=== PATIENT | female | born 1990 | race Caucasian/White ===

== ENCOUNTER 2016-10-31 15:36 | Emergency (ER) ==
[2016-10-31 15:54] VITALS: BP 128/97; TEMP 98.8; BMI 36.8
[2016-10-31] MEDS ORDERED: MORPHINE 4 MG/ML SYRINGE IM STA (16:00)
[2016-10-31] MEDS ORDERED: ZOFRAN 4 MG/2 ML IM STA (16:00)
[2016-10-31 16:10] LABS: BASOPHILS % (AUTO) 0.3 % (0.0-3.0); EOSINOPHILS # (AUTO) 0.3 K/ul (0.0-0.7); EOSINOPHILS % (AUTO) 2.7 % (0.0-7.0); HEMATOCRIT 39.8 % (37.0-47.0); HEMOGLOBIN 13.6 g/dl (12.0-16.0); IMMATURE GRANULOCYTE % (AUTO) 0.4 % (0.0-5.0); LYMPHOCYTES # (AUTO) 3.8 K/uL (0.60-3.4); LYMPHOCYTES % (AUTO) 33.4 (10.0-50.0); MEAN CORPUSCULAR HEMOGLOBIN 29.4 pg (27.0-31.0); MEAN CORPUSCULAR HGB CONC 34.2 (31.8-35.4); MEAN CORPUSCULAR VOLUME 86.1 fl (81.0-99.0); MONOCYTES # (AUTO) 0.9 K/uL (0.4-2.0); MONOCYTES % (AUTO) 7.6 (0-10); NEUTROPHILS # (AUTO) 6.3 K/ul (2.0-6.9); NEUTROPHILS % (AUTO) 55.6; PLATELET COUNT 395 10^3/uL (140-440); RED BLOOD COUNT 4.62 10^6/ul (4.20-5.40); WHITE BLOOD COUNT 11.28 K/ul (4.6-10.2)
[2016-10-31 16:28] LABS: ALBUMIN 4.6 g/dL (3.4-5.0); ALBUMIN/GLOBULIN RATIO 1.24; ANION GAP 19.6; BILIRUBIN,TOTAL 0.74 mg/dL (0.00-1.20); BUN/CREATININE RATIO 13.58; CREATININE 0.81 mg/dL (0.60-1.30); POTASSIUM 3.6 mmol/L (3.5-5.10); TOTAL PROTEIN 8.3 g/dL (6.4-8.2)
--- NOTE | 2016-10-31 16:42 | ED.PDOC ---
General ED Provider: Dr. ANALIA KEATING Chief Complaint: Abdominal Pain Stated Complaint: abdominal pain Time Seen by Physician: 15:38 (seen with staff) Mode of Arrival: Wheelchair Information Source: Patient Exam Limitations: No limitations Nursing and Triage Documentation Reviewed and Agree: Yes GI Complaint Exam - Abdominal Pain Complaint/Exam Onset: Gradual Duration: 1 day Symptoms Are: Still present Timing: Intermittent Initial Severity: Moderate Current Severity: Moderate Location of Pain: Diffuse Character: Reports: Dull Aggravating: Reports: None Alleviating: Reports: None Associated Signs and Symptoms: Denies: Diaphoresis, Fever, Cough, Chest pain, Dizziness, Back pain, Constipation, Blood in stool, Dysuria, Urinary frequency, Decreased urine output, Decreased appetite, Vaginal bleeding, Vaginal discharge , Nausea, Vomiting, Diarrhea, Sore throat, Decreased activity Related History: Reports: Similar episode AAA Risk Factors: Reports: None Cardiac Risk Factors: Reports: None Ectopic Risk Factors: Reports: None Ovarian Torsion Risk Factors: Reports: None Surgical Obstruction Risk Factors: Reports: None Related Surgical History: Reports: None Patient Rh Status: Unknown Abdominal Findings: Present: None Differential Diagnoses: Appendicitis, Bowel Obstruction, Constipation, Diverticulitis, Gastroenteritis, Pancreatitis, UTI, Ovarian Cyst Review of Systems - Review Of Systems Constitutional: Reports: No symptoms Eyes: Reports: No symptoms Ears, Nose, Mouth, Throat: Reports: No symptoms Respiratory: Reports: No symptoms Cardiac: Reports: No symptoms GI: Reports: Abdominal pain : Reports: No symptoms Musculoskeletal: Reports: No symptoms Skin: Reports: No symptoms Neurological: Reports: No symptoms Endocrine: Reports: No symptoms Hematologic/Lymphatic: Reports: No symptoms All Other Systems: Reviewed and Negative Past Medical History - Past Medical History Previously Healthy: Yes Endocrine: Reports: None Cardiovascular: Reports: None Respiratory: Reports: None Hematological: Reports: None Gastrointestinal: Reports: None Genitourinary: Reports: None Neuro/Psych: Reports: None Musculoskeletal: Reports: None Cancer: Reports: None Last Menstrual Period: now - Surgical History General Surgical History: Reports: None - Family History Family History: Reports: Unknown - Social History Smoking Status: Current every day smoker, Light tobacco smoker Hx Substance Use: No Alcohol Screening: Occasionally Physical Exam - Physical Exam Appearance: Well-appearing, No pain distress, Well-nourished Eyes: SAM, EOMI, Conjunctiva clear ENT: Ears normal, Nose normal, Oropharynx normal Respiratory: Airway patent, Breath sounds clear, Breath sounds equal, Respirations nonlabored Cardiovascular: RRR, Pulses normal, No rub, No murmur GI/: Soft, Nontender, No masses, Bowel sounds normal, No Organomegaly Musculoskeletal: Normal strength, ROM intact, No edema, No calf tenderness Skin: Warm, Dry, Normal color Neurological: Sensation intact, Motor intact, Reflexes intact, Cranial nerves intact, Alert, Oriented Psychiatric: Affect appropriate, Mood appropriate Interpretation - Radiology Interpretation Radiology Interpretation By: Radiologist Critical Care Note - Critical Care Note Total Time (mins): 0 Course - Course Hematology/Chemistry: 10/31/16 16:05 10/31/16 16:05 Orders, Labs, Meds: Lab Review 10/31/16 10/31/16 16:05 16:55 WBC 11.28 H RBC 4.62 Hgb 13.6 Hct 39.8 MCV 86.1 MCH 29.4 MCHC 34.2 RDW Coeff of Myrna 14.4 Plt Count 395 Immature Gran % (Auto) 0.4 Neut % (Auto) 55.6 Lymph % (Auto) 33.4 [place] % (Auto) 7.6 Eos % (Auto) 2.7 Baso % (Auto) 0.3 Immature Gran # (Auto) 0.0 Neut # 6.3 Lymph # 3.8 H [place] # 0.9 Eos # 0.3 Baso # 0.0 Sodium 140 Potassium 3.6 Chloride 103 Carbon Dioxide 21 Anion Gap 19.6 BUN 11 Creatinine 0.81 Estimated GFR (MDRD) 86.00 BUN/Creatinine Ratio 13.58 Glucose 90 Calcium 10.0 Total Bilirubin 0.74 AST 28 ALT 46 Alkaline Phosphatase 82 Total Protein 8.3 H Albumin 4.6 Globulin 3.7 Albumin/Globulin Ratio 1.24 Amylase 27 Lipase 9 Urine Test Negative Orders Category Date Time Status EKG-(ED ONLY) Stat CARDIO 10/31/16 16:54 Completed AMYLASE Stat LAB 10/31/16 16:05 Completed CBC W/ AUTO DIFF Stat LAB 10/31/16 16:05 Completed COMPREHENSIVE METABOLIC PANEL Stat LAB 10/31/16 16:05 Completed LIPASE Stat LAB 10/31/16 16:05 Completed URINE Stat LAB 10/31/16 16:55 Completed Morphine Sulfate [Morphine 4 mg/ml Syringe] MEDS 10/31/16 16:00 Discontinued 4 mg IM ONCE STA Ondansetron HCl/Pf [Zofran 4 mg/2 ml] MEDS 10/31/16 16:00 Discontinued 4 mg IM ONCE STA CT ABDOMEN/PELVIS WO CONTRAST Stat RADS 10/31/16 15:59 Completed ULTRASOUND PELVIS BEAUCHAMP VAGINAL/NONOB [U/S PELVIS BEAUCHAMP RADS 10/31/16 15:55 Completed VAGINAL/NON OB] Stat Medications Discontinued Medications Generic Name Dose Route Start Last Admin Trade Name Freq PRN Reason Stop Dose Admin Morphine Sulfate 4 mg 10/31/16 16:00 10/31/16 17:00 Morphine 4 Mg/Ml Syringe IM 10/31/16 16:01 4 mg ONCE STA Administration Ondansetron HCl 4 mg 10/31/16 16:00 10/31/16 17:00 Zofran 4 Mg/2 Ml IM 10/31/16 16:01 4 mg ONCE STA Administration Vital Signs: Temp Pulse Resp BP Pulse Ox 10/31/16 15:36 98.8 F 133 H 20 128/97 H 100 Departure - Departure Time of Disposition: 17:40 (discharge inst given with neighborhood worker at bedside all reports given to the pt) Disposition: HOME SELF-CARE Discharge Problem: Abdominal pain Instructions: Abdominal Pain (ED) Condition: Good Pt referred to PMD for follow-up: No Additional Instructions: Please call your Family Physician as soon as possible to schedule a follow-up appointment. Allergies/Adverse Reactions: Allergies No Known Allergies Allergy (Unverified 10/31/16 15:46) Home Medications: Ambulatory Orders 1 [No Reported Medications] 10/31/16 Disposition Discussed With: Patient
--- NOTE | 2016-10-31 16:51 | US ---
EXAM: Transvaginal pelvic ultrasound HISTORY: Pelvic pain with history of and tubal ligation COMPARISON: CT abdomen pelvis 05/15/2014 TECHNIQUE: Transvaginal pelvic ultrasound was performed to better evaluate the structures. Limited Doppler was provided. FINDINGS: The uterus measures 8.3 x 3.2 x 4.3 cm. The endometrium measures 0.9 cm in thickness. Ce rvix is normal in appearance. The right ovary measures 3.4 x 2.5 x 2.1 cm. There is normal color Doppler flow. There is an anecho ic cyst measuring 2.3 x 2.6 x 2.1 cm. The left ovary is not seen. IMPRESSION: 1. Anechoic cyst in the right adnexa most consistent with ovarian cyst. There is no evidence of to rsion. 2. No additional abnormality is identified.
[2016-10-31 17:05] LABS: URINE PREGNANCY INTERNAL QC INTERNAL QC VALID
--- NOTE | 2016-10-31 17:30 | CT ---
EXAM: CT of the abdomen pelvis without contrast History: Abdominal pain. Comparison: CT abdomen pelvis 05/15/2014, pelvic ultrasound 10/31/2016 Technique: Multiplanar CT images through the abdomen pelvis were obtained without the administratio n of IV contrast Findings: Lung bases are free of consolidation. No acute osseous abnormalities. Moderate degenerat jeannette disc disease at L5-S1 No discrete gallstones identified by CT. No focal liver or splenic lesions. No peripancreatic infl ammation. Adrenal glands are unremarkable. No renal stones and no hydronephrosis. No bowel obstru ction. The appendix is normal. No free air. No ascites. No bladder wall thickening. 2.2 cm righ t adnexal cyst. No perirectal inflammation. Impression: A small right adnexal cyst. Moderate degenerative disc disease at L5-S1. Examination is otherwise unremarkable.
== END 2016-10-31 18:07 | disposition home or self-care (01) ==
LOC: ED 15:36
DX: R10.84 Generalized abdominal pain (principal); F17.210 Nicotine dependence, cigarettes, uncomplicated
CPT/HCPCS: 36415; 80053; 81025; 82150; 83690; 85025; 93005; 93010; 96372; 99283

== ENCOUNTER 2016-12-08 00:28 | Emergency (ER) ==
[2016-12-08 00:29] VITALS: BMI 36.8
[2016-12-08 00:41] VITALS: BP 112/74; TEMP 97.6
[2016-12-08] MEDS ORDERED: SODIUM CHLORIDE 1,000 ML IV STA (01:01)
[2016-12-08 01:14] LABS: BASOPHILS # (AUTO) 0.1 K/uL (0-0.2); BASOPHILS % (AUTO) 0.5 % (0.0-3.0); EOSINOPHILS # (AUTO) 0.6 K/ul (0.0-0.7); HEMATOCRIT 39.9 % (37.0-47.0); HEMOGLOBIN 13.4 g/dl (12.0-16.0); IMMATURE GRANULOCYTE % (AUTO) 0.3 % (0.0-5.0); LYMPHOCYTES # (AUTO) 4.1 K/uL (0.60-3.4); LYMPHOCYTES % (AUTO) 39.7 (10.0-50.0); MEAN CORPUSCULAR HEMOGLOBIN 29.4 pg (27.0-31.0); MEAN CORPUSCULAR HGB CONC 33.6 (31.8-35.4); MEAN CORPUSCULAR VOLUME 87.5 fl (81.0-99.0); MONOCYTES # (AUTO) 0.8 K/uL (0.4-2.0); MONOCYTES % (AUTO) 8.1 (0-10); NEUTROPHILS # (AUTO) 4.6 K/ul (2.0-6.9); NEUTROPHILS % (AUTO) 45.4; PLATELET COUNT 346 10^3/uL (140-440); RED BLOOD COUNT 4.56 10^6/ul (4.20-5.40); WHITE BLOOD COUNT 10.21 K/ul (4.6-10.2)
[2016-12-08 01:32] LABS: SERUM PREGNANCY INTERNAL QC INTERNAL QC VALID
[2016-12-08 01:33] LABS: ALBUMIN 3.8 g/dL (3.4-5.0); ALBUMIN/GLOBULIN RATIO 1.12; ANION GAP 16.9; BILIRUBIN,TOTAL 0.18 mg/dL (0.00-1.20); BUN/CREATININE RATIO 25.97; CALCIUM 9.6 mg/dL (8.2-10.2); CREATININE 0.77 mg/dL (0.60-1.30); POTASSIUM 3.9 mmol/L (3.5-5.10); TOTAL PROTEIN 7.2 g/dL (6.4-8.2)
[2016-12-08 01:42] LABS: BILIRUBIN,URINE Negative (NEGATIVE); KETONES,URINE Negative (NEGATIVE); LEUKOCYTE ESTERASE ,URINE Negative (NEGATIVE); NITRITE,URINE Negative (NEGATIVE); PH,URINE 5.5 (5-9); PROTEIN,URINE Negative (NEGATIVE); URINE, BLOOD Trace-intact (NEGATIVE)
[2016-12-08 01:45] LABS: ADD URINE MICROSCOPIC YES
[2016-12-08 02:04] LABS: CREATINE KINASE 115 U/L
[2016-12-08 02:11] LABS: CREATINE KINASE MB 1.5 ng/ml (0.0-3.6)
[2016-12-08 02:17] LABS: COCAIN SCREEN,URINE NEGATIVE (NEGATIVE)
--- NOTE | 2016-12-08 02:42 | CT ---
EXAM: CT angiogram of the chest with intravenous contrast 12/08/2016. Sagittal and coronal reforma tted images obtained HISTORY: Chest pain COMPARISON: 07/05/2015 FINDINGS: The heart size appears within normal limits. No pericardial effusion. There are no pulmonary arterial filling defects to suggest pulmonary embolus. Bilateral bronchial wa ll thickening which may relate to bronchitis/bronchiolitis. Bilateral ground-glass density most pro minent in a perihilar distribution. This may relate to areas of pneumonitis. There is no pulmonary consolidation, effusion or pneumothorax. IMPRESSION: 1. No pulmonary embolus. 2. Bilateral bronchial wall thickening which may relate to bronchitis/bronchiolitis 3. Ground-glass density within both lungs. This is most prominent in a perihilar distribution coul d relate to areas of pneumonitis.
--- NOTE | 2016-12-08 03:16 | ED.PDOC ---
General ED Provider: Dr. TATIANA IBRAHIM-ER Chief Complaint: Chest Pain Stated Complaint: my heart started beating fast and then it hurt Time Seen by Physician: 00:45 Mode of Arrival: Walk-In Information Source: Patient, Family Exam Limitations: No limitations Nursing and Triage Documentation Reviewed and Agree: Yes Cardiovascular Complaint Exam - Palpitations Complaint/Exam Onset/Duration: 2hrs Symptoms Are: Still present Timing: Constant Initial Severity: Mild Current Severity: Mild Character: Reports: Fast, Pounding Aggravating: Reports: None Alleviating: Reports: None Associated Signs and Symptoms: Reports: Chest pain, Shortness of breath. Denies : Lightheadedness, Dizziness, Syncope, Diaphoresis, Nausea, Vomiting Related Surgical History: Reports: None Cardiac Risk Factors: Reports: None Thyroid Exam: Normal Differential Diagnoses: Mitral Valve Prolapse Quality Indicator For Non-Traumatic Chest Pain/Syncope: EKG Performed Review of Systems - Review Of Systems Constitutional: Reports: No symptoms Eyes: Reports: No symptoms Ears, Nose, Mouth, Throat: Reports: No symptoms Respiratory: Reports: Short of air Cardiac: Reports: Chest pain, Palpitations GI: Reports: No symptoms : Reports: No symptoms Musculoskeletal: Reports: No symptoms Skin: Reports: No symptoms Neurological: Reports: No symptoms Endocrine: Reports: No symptoms Hematologic/Lymphatic: Reports: No symptoms All Other Systems: Reviewed and Negative Past Medical History - Past Medical History Previously Healthy: Yes Endocrine: Reports: None Cardiovascular: Reports: None Respiratory: Reports: None Hematological: Reports: None Gastrointestinal: Reports: None Genitourinary: Reports: None Neuro/Psych: Reports: None Musculoskeletal: Reports: None Cancer: Reports: None Last Menstrual Period: 3 DAYS AGO - Surgical History General Surgical History: Reports: None - Family History Family History: Reports: Unknown - Social History Smoking Status: Current every day smoker, Light tobacco smoker Hx Substance Use: Yes (ALCOHOL/METH) Alcohol Screening: Occasionally Lives: With family - Immunizations Tetanus Shot up to Date: Yes Physical Exam - Physical Exam Appearance: Well-appearing, No pain distress, Well-nourished Eyes: SAM, EOMI, Conjunctiva clear ENT: Ears normal, Nose normal, Oropharynx normal Neck: Supple Respiratory: Airway patent, Breath sounds clear, Breath sounds equal, Respirations nonlabored Cardiovascular: RRR, Pulses normal, No rub, No murmur GI/: Soft, Nontender, No masses, Bowel sounds normal, No Organomegaly Musculoskeletal: Normal strength, ROM intact, No edema, No calf tenderness Skin: Warm, Dry, Normal color Neurological: Sensation intact, Motor intact, Reflexes intact, Cranial nerves intact, Alert, Oriented Psychiatric: Affect appropriate, Mood appropriate, Anxious Interpretation - Radiology Interpretation Radiology Interpretation By: Radiologist ("ground glass density both lungs") Radiology Results: Positive Exam Interpreted: CT Scan - EKG Interpretation Time of EKG #1: 01:00 Rate: Normal Rhythm: Sinus Ectopy: None Sullivan: NL ST Segment: Normal Interpretation: nsr Re-Evaluation - Re-Evaluation Time of Re-Evaluation: 03:16 Status: Improved (sleeping--no cp or palpitations) Vital Signs Stable: Yes Pain Level: 0 Appearance: NAD Lungs: Clear Skin: Warm and Dry Neuro: Alert and Oriented X3 CV: RRR Critical Care Note - Critical Care Note Total Time (mins): 0 Course - Course Hematology/Chemistry: 12/08/16 01:10 12/08/16 01:10 Orders, Labs, Meds: Lab Review 12/08/16 12/08/16 12/08/16 01:10 01:25 01:58 WBC 10.21 H RBC 4.56 Hgb 13.4 Hct 39.9 MCV 87.5 MCH 29.4 MCHC 33.6 RDW Coeff of Myrna 13.6 Plt Count 346 Immature Gran % (Auto) 0.3 Neut % (Auto) 45.4 Lymph % (Auto) 39.7 [place] % (Auto) 8.1 Eos % (Auto) 6.0 Baso % (Auto) 0.5 Immature Gran # (Auto) 0.0 Neut # 4.6 Lymph # 4.1 H [place] # 0.8 Eos # 0.6 Baso # 0.1 Sodium 141 Potassium 3.9 Chloride 104 Carbon Dioxide 24 Anion Gap 16.9 BUN 20 H Creatinine 0.77 Estimated GFR (MDRD) 91.00 BUN/Creatinine Ratio 25.97 Glucose 93 Calcium 9.6 Total Bilirubin 0.18 AST 34 ALT 50 Alkaline Phosphatase 86 Total Creatine Kinase 115 CK-MB (CK-2) 1.5 CK-MB (CK-2) % 1.75932 Troponin I < 0.0100 Total Protein 7.2 Albumin 3.8 Globulin 3.4 Albumin/Globulin Ratio 1.12 Amylase 24 L Lipase 12 TSH 2.513 Free T4 1.01 Serum , Qual Negative Urine Color Yellow Urine Clarity Clear Urine pH 5.5 Ur Specific [place] >=1.030 Urine Protein Negative Urine Glucose (UA) Negative Urine Ketones Negative Urine Blood Trace-intact Urine Nitrite Negative Urine Bilirubin Negative Urine Urobilinogen 0.2 Ur Leukocyte Esterase Negative Urine Microscopic RBC 2-5 Ur Squamous Epith Cells Not present Urine Opiates Screen Negative Ur Oxycodone Screen Negative Urine Methadone Screen Negative Ur Propoxyphene Screen Negative Ur Barbiturates Screen Negative U Tricyclic Antidepress Negative Ur Phencyclidine Scrn Negative Ur Amphetamine Screen Negative U Methamphetamines Scrn Negative U Benzodiazepines Scrn Positive Urine Cocaine Screen Negative U Cannabinoids Screen Negative Orders Category Date Time Status EKG-(ED ONLY) Stat CARDIO 12/08/16 01:01 Completed HOLTER MONITOR-(ED ONLY) Stat CARDIO 12/08/16 03:13 Ordered NPO REMINDER: IMAGING ONCE CARE 12/08/16 01:02 Completed Food Safety Field Specialist [ED COC[employer] BE[employer] ROASTER HELPER APPLIED] .ONCE EMERGENCY 12/08/16 01:01 Active ED IV/MEDIPORT/POWERPORT .ONCE EMERGENCY 12/08/16 01:01 Active AMYLASE Stat LAB 12/08/16 01:10 Completed CBC W/ AUTO DIFF Stat LAB 12/08/16 01:10 Completed COMPREHENSIVE METABOLIC PANEL Stat LAB 12/08/16 01:10 Completed CREATINE KINASE Stat LAB 12/08/16 01:10 Completed FREE T4 (FREE THYROXINE) Stat LAB 12/08/16 01:10 Completed LIPASE Stat LAB 12/08/16 01:10 Completed SERUM Stat LAB 12/08/16 01:10 Completed THYROID STIMULATING HORMONE Stat LAB 12/08/16 01:10 Completed TROPONIN I Stat LAB 12/08/16 01:10 Completed URINALYSIS C & S IF INDICATED Stat LAB 12/08/16 01:25 Completed URINE DRUG SCREEN (RAPID FOR ED) [DRUG SCREEN, URINE, LAB 12/08/16 01:58 Completed RAPID] Stat 0.9 % Sodium Chloride [Saline Flush] MEDS 12/08/16 01:01 Ordered 1 syr IVF PRN PRN Sodium Chloride 0.9% [Sodium Chloride] 1,000 ml MEDS 12/08/16 01:01 Active IV 100 mls/hr CT CHEST PE PROTOCOL Stat RADS 12/08/16 01:02 Completed Medications Generic Name Dose Route Start Last Admin Trade Name Freq PRN Reason Stop Dose Admin Sodium Chloride 1,000 mls @ 100 mls/hr 12/08/16 01:01 12/08/16 01:32 Sodium Chloride IV 12/08/16 11:00 100 mls/hr .Q10H STA Administration Sodium Chloride 1 syr 12/08/16 01:01 12/08/16 01:34 Saline Flush IVF 1 syr PRN PRN Administration To flush IV we note the ground glass denisty both lungs ?significance---denies any cough or hemoptysis or fever--advised the patient to follow up with her pcp Vital Signs: Temp Pulse Resp BP Pulse Ox 12/08/16 00:29 97.6 F 91 H 18 112/74 100 RADHA Risk Score RADHA Risk Score: Risk Score Odds of by 30D 0 0.1 (0.1-0.2) 1 0.3 (0.2-0.3) 2 0.4 (0.3-0.5) 3 0.7 (0.6-0.9) 4 1.2 (1.0-1.5) 5 2.2 (1.9-2.6) 6 3.0 (2.5-3.6) 7 4.8 (3.8-6.1) Departure - Departure Time of Disposition: 03:17 Disposition: HOME SELF-CARE Discharge Problem: Chest pain, Palpitations Instructions: Palpitations (ED) Condition: Good Pt referred to PMD for follow-up: Yes Additional Instructions: continue holter monitor---f/u with pcp regarding abnormal findings on ct scan Allergies/Adverse Reactions: Allergies No Known Allergies Allergy (Verified 12/08/16 00:41) Home Medications: Ambulatory Orders Alprazolam [Xanax] 0.5 mg PO BID PRN 12/08/16 Bupropion HCl [Wellbutrin] 75 mg PO DAILY 12/08/16 Disposition Discussed With: Patient, Family
--- NOTE | 2016-12-11 10:23 | HOLTER ---
PATIENT INFORMATION AND COMMENTS Indications: CHEST PAIN, BACK PAIN, SOB __ Patient Medications: XANAX, WELLBUTRIN __ Pre-procedure Summary: Protocol: Standard Heart Rate Started: 12/08/16344 Minimum: 59 BPM Weight: 235 LBS Ended: 12/09/16 034 Maximum: 174 BPM Height: 67" Duration: 24 HOURS Average: 91 BPM _ INTERPRETATIONS/OBSERVATIONS: 1. BASIC RHYTHM: SINUS, RATE 60/BPM TO 110/BPM, AVERAGE 90/BPM 2. INFREQUENT PVC'S AND RARE PAC'S 3. NO ST-T WAVE CHANGES FROM BASELINE 4. NO CORRELATION WITH ACTIVITY LOG MTDD
== END 2016-12-08 03:53 | disposition home or self-care (01) ==
LOC: ED 00:28
DX: R07.9 Chest pain, unspecified (principal); R00.2 Palpitations; R06.02 Shortness of breath; R91.8 Other nonspecific abnormal finding of lung field; F17.210 Nicotine dependence, cigarettes, uncomplicated
CPT/HCPCS: 36415; 80053; 80306; 81001; 82150; 82550; 82553; 83690; 84439; 84443; 84484; 84703; 85025; 93005; 93010; 96360; 96361; 99283

== ENCOUNTER 2017-02-21 11:45 | Outpatient (CLI) ==
--- NOTE | 2017-02-21 12:15 | US ---
EXAM: Ultrasound abdomen limited. HISTORY: Right upper quadrant pain. COMPARISON: CT 10/31/2016. TECHNIQUE: Abdominal, real time with image documentation: limited (eg, single organ, quadrant, foll ow-up) FINDINGS: Image quality is degraded by patients body habitus. The liver demonstrates increased pare nchymal echogenicity without intrahepatic biliary dilatation. Portal venous flow is normal in direct ion. The gallbladder is without shadowing stones, wall thickening or pericholecystic fluid. Common duct measures approximately 0.3 cm. Visualized portions of the pancreas are unremarkable. IMPRESSION: 1. Fatty infiltration of the liver. 2. Technically limited study due to patient's body habitus. Consider follow-up CT if symptoms persi st.
[2017-02-21 12:19] LABS: BILIRUBIN,URINE Negative (NEGATIVE); KETONES,URINE Negative (NEGATIVE); LEUKOCYTE ESTERASE ,URINE Negative (NEGATIVE); NITRITE,URINE Negative (NEGATIVE); PH,URINE 6.5 (5-9); PROTEIN,URINE Negative (NEGATIVE); URINE PREGNANCY INTERNAL QC INTERNAL QC VALID; URINE, BLOOD Trace-intact (NEGATIVE)
[2017-02-21 12:29] LABS: BASOPHILS # (AUTO) 0.1 K/uL (0-0.2); BASOPHILS % (AUTO) 0.6 % (0.0-3.0); EOSINOPHILS # (AUTO) 0.4 K/ul (0.0-0.7); EOSINOPHILS % (AUTO) 4.5 % (0.0-7.0); HEMOGLOBIN 13.7 g/dl (12.0-16.0); IMMATURE GRANULOCYTE % (AUTO) 0.3 % (0.0-5.0); LYMPHOCYTES # (AUTO) 2.6 K/uL (0.60-3.4); LYMPHOCYTES % (AUTO) 26.6 (10.0-50.0); MEAN CORPUSCULAR HEMOGLOBIN 29.3 pg (27.0-31.0); MEAN CORPUSCULAR HGB CONC 34.3 (31.8-35.4); MEAN CORPUSCULAR VOLUME 85.5 fl (81.0-99.0); MONOCYTES # (AUTO) 0.4 K/uL (0.4-2.0); MONOCYTES % (AUTO) 4.3 (0-10); NEUTROPHILS # (AUTO) 6.2 K/ul (2.0-6.9); NEUTROPHILS % (AUTO) 63.7; PLATELET COUNT 334 10^3/uL (140-440); RED BLOOD COUNT 4.68 10^6/ul (4.20-5.40); WHITE BLOOD COUNT 9.73 K/ul (4.6-10.2)
[2017-02-21 12:30] LABS: ADD URINE MICROSCOPIC YES
[2017-02-21 12:32] LABS: COCAIN SCREEN,URINE NEGATIVE (NEGATIVE)
[2017-02-21 12:40] LABS: ALBUMIN 3.5 g/dL (3.4-5.0); ALBUMIN/GLOBULIN RATIO 0.92; BILIRUBIN,TOTAL 0.31 mg/dL (0.00-1.20); BUN/CREATININE RATIO 12.85; CALCIUM 9.4 mg/dL (8.2-10.2); CHOL/HDL RATIO 4.2 (4.5-5.5); CREATININE 0.7 mg/dL (0.60-1.30); TOTAL PROTEIN 7.3 g/dL (6.4-8.2)
== END 2017-02-21 11:46 | disposition home or self-care (01) ==
LOC: RAD 11:45
PROVIDERS: ATTEND Nurse Practitioner Family
DX: F41.1 Generalized anxiety disorder (principal); R10.11 Right upper quadrant pain; R11.2 Nausea with vomiting, unspecified; Y63.3 Inadvertent exposure of patient to radiation during medical care
CPT/HCPCS: 36415; 80053; 80061; 80306; 81001; 81025; 82150; 83690; 85025

== ENCOUNTER 2017-04-22 09:44 | Outpatient (CLI) ==
[2017-04-22 10:44] LABS: ALBUMIN 3.7 g/dL (3.4-5.0); ALBUMIN/GLOBULIN RATIO 0.97; ANION GAP 13.8; BILIRUBIN,TOTAL 0.26 mg/dL (0.00-1.20); BUN/CREATININE RATIO 16.21; CALCIUM 9.5 mg/dL (8.2-10.2); CREATININE 0.74 mg/dL (0.60-1.30); POTASSIUM 3.8 mmol/L (3.5-5.10); TOTAL PROTEIN 7.5 g/dL (6.4-8.2)
== END 2017-04-22 09:45 | disposition home or self-care (01) ==
LOC: CAR 09:44
PROVIDERS: ATTEND Nurse Practitioner Family
DX: E66.3 Overweight (principal)
CPT/HCPCS: 36415; 80053; 84443; 93005; 93010

== ENCOUNTER 2017-05-21 16:15 | Outpatient (CLI) | END 2017-05-21 16:16 | disposition home or self-care (01) | LOC: LAB 16:15 | PROVIDERS: ATTEND Emergency Medicine | DX: R68.89 Other general symptoms and signs (principal) | CPT/HCPCS: 87804 ==

== ENCOUNTER 2017-07-15 16:43 | Outpatient (CLI) | END 2017-07-15 16:44 | disposition home or self-care (01) | LOC: FCC-LAB 16:43 | PROVIDERS: ATTEND Nurse Practitioner Family | DX: F41.8 Other specified anxiety disorders (principal); E66.9 Obesity, unspecified; R53.83 Other fatigue | CPT/HCPCS: 36415; 80053; 82306; 84439; 84443; 85025 ==

== ENCOUNTER 2017-10-14 09:51 | Emergency (ER) ==
[2017-10-14 10:06] VITALS: BP 116/82; TEMP 98.9; BMI 35.4
--- NOTE | 2017-10-14 10:15 | ED.PDOC ---
General ED Provider: Dr. ANALIA KEATING Chief Complaint: Eye Problem Stated Complaint: pink eye Time Seen by Physician: 10:00 Mode of Arrival: Walk-In Information Source: Patient Exam Limitations: No limitations Nursing and Triage Documentation Reviewed and Agree: Yes Reviewed sepsis parameters & appropriate labs ordered?: Yes System Inflammatory Response Syndrome: Not Applicable Sepsis Protocol: For patient's 13 years and over: Temp is 96.8 and below OR 101 and greater Pulse >90 BPM Resp >20/minute Acutely Altered Mental Status Are patient's symptoms suggestive of a new infection, such as: -Pneumonia -Skin, Soft Tissue -Endocarditis -UTI -Bone, Joint Infection -Implantable Device -Acute Abdominal Infection -Wound Infection -Meningitis -Blood Stream Catheter Infection -Unknown EENT Complaint Exam - Eye Complaint/Exam Onset/Duration: 2 days Symptoms Are: Still present (2 days) Timing: Constant Initial Severity: Mild Current Severity: Mild Location: Right, Left Character: Reports: Dull Aggravating: Reports: Light Alleviating: Reports: Darkness Associated Signs and Symptoms: Reports: Photophobia, Clear drainage. Denies: Purulent drainage, Vision impairment, Fever, Swelling Eye Surgical History: Reports: None Penetrating Injury Risk Factors: None Globe Rupture Risk Factors: None Acute Glaucoma Risk Factors: None Optic Artery Occlusion Risk Factors: None Visual Field: Normal Extraocular Movement: Normal Orbit Findings: Normal Globe Findings: Intact Lid Findings: Normal Conjunctival Findings: Red Corneal Findings: Clear Differential Diagnoses: Conjunctivitis Review of Systems - Review Of Systems Constitutional: Reports: No symptoms Eyes: Reports: Inflammation (r, l eyes ) Ears, Nose, Mouth, Throat: Reports: No symptoms Respiratory: Reports: No symptoms Cardiac: Reports: No symptoms GI: Reports: No symptoms : Reports: No symptoms Musculoskeletal: Reports: No symptoms Skin: Reports: No symptoms Neurological: Reports: No symptoms Endocrine: Reports: No symptoms Hematologic/Lymphatic: Reports: No symptoms All Other Systems: Reviewed and Negative Past Medical History - Past Medical History Previously Healthy: Yes Endocrine: Reports: None Cardiovascular: Reports: None Respiratory: Reports: None Hematological: Reports: None Gastrointestinal: Reports: None Genitourinary: Reports: None Neuro/Psych: Reports: None Musculoskeletal: Reports: None Cancer: Reports: None Last Menstrual Period: one week ago - Surgical History General Surgical History: Reports: None - Family History Family History: Reports: Unknown - Social History Smoking Status: Current some day smoker Hx Substance Use: No Alcohol Screening: Occasionally - Immunizations Tetanus Shot up to Date: Yes Physical Exam - Physical Exam Appearance: Well-appearing, No pain distress, Well-nourished Eyes: Conjunctiva inflammed (right, left) ENT: Ears normal, Nose normal, Oropharynx normal Respiratory: Airway patent, Breath sounds clear, Breath sounds equal, Respirations nonlabored Cardiovascular: RRR, Pulses normal, No rub, No murmur GI/: Soft, Nontender, No masses, Bowel sounds normal, No Organomegaly Musculoskeletal: Normal strength, ROM intact, No edema, No calf tenderness Skin: Warm, Dry, Normal color Neurological: Sensation intact, Motor intact, Reflexes intact, Cranial nerves intact, Alert, Oriented Psychiatric: Affect appropriate, Mood appropriate Critical Care Note - Critical Care Note Total Time (mins): 0 Course - Course Vital Signs: Temp Pulse Resp BP Pulse Ox 10/14/17 09:53 98.9 F 92 H 16 116/82 95 Departure - Departure Time of Disposition: 10:15 Disposition: HOME SELF-CARE Discharge Problem: Conjunctivitis Qualifiers: Conjunctivitis type: acute Acute conjunctivitis type: unspecified Laterality: bilateral Qualified Code(s): H10.33 - Unspecified acute conjunctivitis, bilateral Instructions: Conjunctivitis (ED) Condition: Good Pt referred to PMD for follow-up: Yes IPMP verified?: No Additional Instructions: Please call your Family Physician as soon as possible to schedule a follow-up appointment.see doctor brush in next 2 days Allergies/Adverse Reactions: Allergies No Known Allergies Allergy (Unverified 01/27/17 16:06) Home Medications: Ambulatory Orders Alprazolam [Xanax] 0.5 mg PO BID PRN 12/08/16 Bupropion HCl [Wellbutrin] 75 mg PO DAILY 12/08/16
== END 2017-10-14 10:29 | disposition home or self-care (01) ==
LOC: ED 09:51
DX: H10.33 Unspecified acute conjunctivitis, bilateral (principal); F17.210 Nicotine dependence, cigarettes, uncomplicated
CPT/HCPCS: 99282

== ENCOUNTER 2018-05-18 18:58 | Emergency (ER) | payer OTHER ==
[2018-05-18 19:04] VITALS: TEMP 99.3; BMI 32.1
[2018-05-18 20:39] VITALS: BP 110/79
--- NOTE | 2018-05-18 20:42 | ED.PDOC ---
General ED Provider: Dr. TATIANA ANN MD Chief Complaint: Palpitations Stated Complaint: increased heart rate Time Seen by Physician: 20:40 Mode of Arrival: Walk-In Information Source: Patient Exam Limitations: No limitations Nursing and Triage Documentation Reviewed and Agree: Yes Does patient meet sepsis criteria?: No If yes, has appropriate treatment been initiated?: Yes System Inflammatory Response Syndrome: Not Applicable Sepsis Protocol: For patient's 13 years and over: Temp is 96.8 and below OR 101 and greater Pulse >90 BPM Resp >20/minute Acutely Altered Mental Status Are patient's symptoms suggestive of a new infection, such as: -Pneumonia -Skin, Soft Tissue -Endocarditis -UTI -Bone, Joint Infection -Implantable Device -Acute Abdominal Infection -Wound Infection -Meningitis -Blood Stream Catheter Infection -Unknown Cardiovascular Complaint Exam - Palpitations Complaint/Exam Symptoms Are: Resolved Timing: Intermittent Initial Severity: Mild Current Severity: None Character: Reports: Fast Aggravating: Reports: Caffeine, Medications Alleviating: Reports: Rest Related Surgical History: Reports: None Cardiac Risk Factors: Reports: None Pulmonary Embolism Risk Factors: Reports: None Atrial Fibrillation Risk Factors: Reports: None Thyroid Exam: Normal Differential Diagnoses: Other (phentermine) Quality Indicator For Non-Traumatic Chest Pain/Syncope: EKG Performed Review of Systems - Review Of Systems Constitutional: Reports: No symptoms Eyes: Reports: No symptoms Ears, Nose, Mouth, Throat: Reports: No symptoms Respiratory: Reports: No symptoms Cardiac: Reports: No symptoms GI: Reports: No symptoms : Reports: No symptoms Musculoskeletal: Reports: No symptoms Skin: Reports: No symptoms Neurological: Reports: No symptoms Endocrine: Reports: No symptoms Hematologic/Lymphatic: Reports: No symptoms All Other Systems: Reviewed and Negative Past Medical History - Past Medical History Previously Healthy: Yes Endocrine: Reports: None Cardiovascular: Reports: None Respiratory: Reports: None Hematological: Reports: None Gastrointestinal: Reports: None Genitourinary: Reports: None Neuro/Psych: Reports: None Musculoskeletal: Reports: None Cancer: Reports: None Last Menstrual Period: COUPLE WEEKS AGO - Surgical History General Surgical History: Reports: None - Family History Family History: Reports: Unknown - Social History Smoking Status: Former smoker Hx Substance Use: No (CLEAN FOR DRUGS IN LONG TIME) Alcohol Screening: Occasionally - Immunizations Tetanus Shot up to Date: Yes Physical Exam - Physical Exam Appearance: Well-appearing, No pain distress, Well-nourished Ill-appearing: None Pain Distress: None Eyes: SAM, EOMI, Conjunctiva clear ENT: Ears normal Neck: Supple Respiratory: Airway patent Cardiovascular: RRR, Pulses normal, No rub, No murmur GI/: Soft Musculoskeletal: Normal strength Skin: Warm, Dry, Normal color Neurological: Sensation intact, Motor intact, Reflexes intact, Cranial nerves intact, Alert, Oriented Psychiatric: Affect appropriate, Mood appropriate Critical Care Note - Critical Care Note Total Time (mins): 0 Course - Course Vital Signs: Temp Pulse Resp BP Pulse Ox 05/18/18 20:39 87 110/79 96 05/18/18 20:18 96 H 115/75 98 05/18/18 18:58 99.3 F 99 H 16 127/89 97 RADHA Risk Score RADHA Risk Score: Risk Score Odds of by 30D 0 0.1 (0.1-0.2) 1 0.3 (0.2-0.3) 2 0.4 (0.3-0.5) 3 0.7 (0.6-0.9) 4 1.2 (1.0-1.5) 5 2.2 (1.9-2.6) 6 3.0 (2.5-3.6) 7 4.8 (3.8-6.1) Departure - Departure Time of Disposition: 21:05 Disposition: HOME SELF-CARE Discharge Problem: Heart palpitations Instructions: Heart Palpitations (DC) Condition: Good Pt referred to PMD for follow-up: Yes IPMP verified?: No Allergies/Adverse Reactions: Allergies No Known Allergies Allergy (Verified 05/18/18 19:06) Home Medications: Ambulatory Orders Phentermine HCl 37.5 mg PO DAILY 05/18/18 Transfer Form Completed: No Disposition Discussed With: Patient, Family
== END 2018-05-18 21:03 | disposition home or self-care (01) ==
LOC: ED 18:58
DX: R00.2 Palpitations (principal)
CPT/HCPCS: 99282